=== PATIENT | male | born 1930 | race Caucasian/White ===

== ENCOUNTER → 2017-12-28 | Outpatient (CLI) | payer MEDICARE ==
[~2017-12-28] VITALS: Ht 177.8 cm; Wt 90.7 kg
[~2017-12-28] MED LIST: ADDERALL 20 MG20 M1 PO; ADDERALL 5 MG TA5 M1 PO; ADULT LOW DOSE81 MG PO; ANALGESIC325 MG PO; ANDROGEL; ANTIVERT25 MG PO; APAP500 PO; APAP650 PO; ASPIRIN325 PO; ATORVASTATIN CA10 MG PO; AZITHROMYCIN 2250 MG PO; COLACE100 MG PO; COZAAR 25 MG TA25 MG PO; CRESTOR10 MG PO; DEPO-TESTO100 MG/1 M; DEXILANT60 MG PO; DOXYCYCLINE 10100 MG PO; EXTRA STRENGTH500 MG PO; FINASTERIDE; FISH OIL 1,001000 M2 PO; FISHOIL; FLOMAX PO; FLOMAX0.4 MG PO; IMDUR 30 MG TAB30 M1 PO; IMODIUM ADVANC1 EAC1 PO; INDERAL LA80 MG PO; INDERAL80 MG PO; KAPIDEX30 MG PO; KLOR-CON; LANSOPRAZOLE30 M1 PO; LEVAQUIN 500 M500 M2 PO; LIPITOR; LIPITOR20 MG PO; LISINOPRIL2.5 MG PO; LISINOPRIL5 MG PO; LOPRESSOR50 PO; MAGNESIUM OXID400 MG PO; METADATE ER20 MG PO; METFORMIN HCL500 MG PO; METHYLPHENIDATE; MIRALAX17 GM PO; MULTI-VITAMIN1 EAC2 PO; MULTIVITAMINS1 EAC7 PO; MYSOLINE50 MG PO; NABUMETONE 500500 M1 PO; NAPROXEN 500MG500 M1 PO; NEURONTIN 300300 M1 PO; NITROGLYCERIN0.4 MG SL; NOVOLIN 70100 UNIT/1 SQ; NOVOLIN R100 UNIT/1 SQ; NOVOLOG100 UNIT/1 SQ; OMEPRAZOLE 20 M20 M1 PO; PLAVIX 75 MG TA75 M1 PO; PLAVIX 75 MG TA75 MG PO; POTASSIUM-9999 MG PO; PREDNISONE 10 M10 MG PO; PREVACID30 MG PO; PROSCAR; PROSCAR 5MG TABL5 M1 PO; PROSCAR 5MG TABL5 MG PO; RELAFEN500 MG PO; RITALIN20 MG PO; SAW PALMETTO C1 EACH PO; SAW PALMETTO500 MG PO; SAW PALMETTO80 MG PO; TIZANIDINE HCL 22 MG PO; TOPROL XL50 MG PO; TRAMADOL; TRAMADOL 50 MG50 MG PO; TRAMADOL PO; TRANSDERM-SCO1 PATC1 TD; TYLENOL OR; ULTRAM ER100 MG; VENLAFAXIN37.5 MG/1 PO; VENLAFAXINE H37.5 M2 PO; VITAMIN B COMP1 EACH PO; VITAMIN B-12100 MCG PO; VITAMIN C100 M1 PO; VITAMIN D1000 UNI1 PO; VITAMINC500 PO; VOLTAREN GEL 1100 G1 TOP; VOLTAREN GEL 1100 G2 TOP; VOLTAREN GEL 1100 GM; VOLTAREN100 GM TP; ZEGERID 40 MG1 EACH PO; ZOFRAN ODT4 MG PO; ZOFRAN4 MG PO; naproxen PO
[2017-12-28 14:04] LABS: ABSOLUTE EOSINOPHILS 0.1 thou/uL (0.0-0.7); ABSOLUTE LYMPHOCYTES 1.5 thou/uL (0.8-5.3); ABSOLUTE MONOCYTES 0.5 thou/uL (0.0-1.2); BASOPHILS 0.5 %; EOSINOPHILS 1.9 %; HEMATOCRIT 41.4 % (42.0-52.0); HEMOGLOBIN 14.2 gm/dL (14.0-18.0); MCH 31.3 pg (26.0-34.0); MCHC 34.2 g/dL (28.0-37.0); MCV 91.3 fL (80.0-100.0); MONOCYTES 8.2 %; MPV 8.5 fl. (7.2-11.1); NUCLEATED RBCS 0 /100WBC; PLATELET COUNT* 253 thou/uL (150-400); POLYS 65.4 %; RBC 4.53 mil/uL (4.50-6.00); RDW-CV 12.6 % (10.5-14.5); WBC 6.1 thou/uL (4.0-11.0)
[2017-12-28 14:13] VITALS: BP 139/65
[2017-12-28 14:15] LABS: APTT 25.7 Seconds (25.0-31.3); INR 1.1; PROTIME 10.7 Seconds (9.20-11.50)
[2017-12-28 14:23] LABS: CALCIUM 9.5 mg/dL (8.5-10.1); POTASSIUM 4.1 mmol/L (3.5-5.1)
[2017-12-28 16:25] VITALS: BP 136/66
[2017-12-28 16:35] VITALS: BP 141/79
[2017-12-28 16:49] VITALS: BP 136/83
[2017-12-28 17:07] VITALS: BP 145/76
[2017-12-28 17:27] VITALS: BP 123/62
--- NOTE | 2018-01-05 14:18 | OP ---
[address] [address] OPERATIVE REPORT Name: CONNER CAMACHO Room: [facility]#: [id number] Admission: 12/28/17 Attend Phys: Smith Zamora DO Discharge: Date of : 30 Report #: [id number] THIS REPORT FOR: //name// CC: Smith Amaya Vic Ng DATE OF SERVICE: 12/28/2017 PREOPERATIVE DIAGNOSES: Peripheral vascular disease with rest pain and severe claudication of left lower extremity. POSTOPERATIVE DIAGNOSES: Peripheral vascular disease with rest pain and severe claudication of left lower extremity. SURGEON: Mayank Gates DO PHYSICIST ASTROPHYSICS: None. PROCEDURE: 1. Ultrasound-guided access, right common femoral artery. 2. Aortogram. 3. Left lower extremity angiogram, catheter position, third order. 4. Atherectomy, angioplasty and stent of the left superficial femoral artery using Bard Crosser device, Bard 6 mm x 150 Ultraverse and Bard 6 mm x 170 LifeStent. 5. Limited right lower extremity angiogram. 6. Angio-Seal closure, right common femoral artery. ESTIMATED BLOOD LOSS: Minimal. SPECIMEN: None. COMPLICATIONS: None. CONDITION: Stable. DISPOSITION: Home. INDICATIONS FOR THE PROCEDURE AND CONSENT: The patient is an 87-year-old male who developed a severe pain of the left lower extremity. The patient was identified to have a severely diminished ADRIAN and concerned for SFA occlusion. Recommendation for left lower extremity angiogram with possible intervention was made. Risks and benefits were discussed; infection, bleeding, damage to the vessel, need for additional procedures including bypass, re-intervention as well as medical risks of anesthetic including stroke, heart attack, . The [address] [address] OPERATIVE REPORT Name: CONNER CAMACHO Room: [facility]#: [id number] Admission: 12/28/17 Attend Phys: Smith Zamora DO Discharge: Date of : 30 Report #: [id number] patient wished to proceed, was consented and scheduled. PROCEDURE IN DETAIL: After timeout was performed, the patient was placed in supine position with sterile prep and drape of the bilateral groins, bilateral thighs. Ultrasound was utilized to identify the right common femoral artery and Seldinger technique used to place a 6-Finnish sheath. Glidewire Advantage and UF catheter advanced in the infrarenal aorta and aortogram performed. Aortogram demonstrated the aorta and bilateral renal arteries to be widely patent. The proximal common and internal iliac arteries appeared widely patent. External iliac arteries were somewhat tortuous, but were patent to the inguinal ligament. Glidewire Advantage and UF catheter advanced in the left external iliac artery under fluoroscopic guidance. Please see saved images. A left lower extremity angiogram was then performed, which demonstrated left common femoral artery and profunda vessel to be widely patent without flow limitation or stenosis. Left superficial femoral artery was fairly heavily diseased throughout, but only occluded in the mid to distal SFA with reconstitution near Kevin canal through collaterals. The popliteal artery appeared patent without significant flow limitation or stenosis. Distal directed imaging demonstrated the peroneal vessel be the main flow to the foot and ankle. The anterior tibial artery was patent, but heavily stenosed and diseased proximally and then occluded and reconstituted after a short distance, but appeared very small diminutive. The posterior tibial artery was also significantly diseased and occluded. At this point, the patient was systemically heparinized with 6000 units of heparin with intention to treat. The Glidewire Advantage was negotiated into the proximal superficial femoral artery and an up and over 6-Finnish sheath placed. Seeker catheter was then used to guide the Glidewire Advantage and the Seeker catheter into the proximal top cap of the SFA occlusion and exchanged for a 0.014 Glidewire Advantage. The Usher catheter was advanced into position and the Crosser device prepared on the back table and obtained. The Crosser device was then activated and passed through the SFA occlusion quite easily. The Usher catheter followed easily as well. An outflow angiogram was performed to the Usher catheter, which demonstrated the catheter to be through the occlusion and in the true luminal position. I then replaced the 0.014 wire, exchanged that for a Seeker catheter and 0.035 Glidewire Advantage and performed additional directed imaging of the tibial vessels, which demonstrated the same findings as noted above. The 6 mm x 150 Ultraverse balloon was then selected, advanced into position of the occlusion and the occlusion angioplastied. This was a fairly long occlusion with heavily calcified vessels and was best treated with a stent. A 6 x 170 LifeStent was selected and advanced into position under fluoroscopic guidance and deployed. This was postdilated with the 6 mm x 150 angioplasty balloon using 2 inflations. Completion angiography demonstrated good radiographic result of flow through the SFA. [address] [address] OPERATIVE REPORT Name: CONNER CAMACHO Room: [facility] KEN Longoria#: [id number] Admission: 12/28/17 Attend Phys: Smith Zamora DO Discharge: Date of : 30 Report #: [id number] I then retracted the sheath and wire, the right external iliac artery and angiogram performed of the right lower extremity which demonstrated the common femoral, profunda and SFA to be widely patent without flow limitation, although there was some calcific disease throughout. I was unable to visualize the tibial vessels distally very well, but the very proximal tibial vessels appeared to be patent x 3. Being satisfied of results and no additional intervention planed, the 6-Finnish sheath was removed and an Angio-Seal closure device used for hemostasis. Pressure was distally held for hemostasis. The patient tolerated the procedure well. Lap, needle, instrument counts correct. <ELECTRONICALLY SIGNED> By: Mayank Gates DO 01/05/18 1418 1727 [id number] Gates DO /nt
== END | disposition home or self-care (01) ==
LOC: M.INT 12-27 12:30
PROVIDERS: Surgery
DX: I70.222 Atherosclerosis of native arteries of extremities with rest pain, left leg (principal); Z95.1 Presence of aortocoronary bypass graft; Z98.890 Other specified postprocedural states; Z86.73 Personal history of transient ischemic attack (TIA), and cerebral infarction without residual deficits; Z79.899 Other long term (current) drug therapy; Z79.01 Long term (current) use of anticoagulants

== ENCOUNTER → 2018-02-20 | Outpatient (CLI) | payer MEDICARE ==
--- NOTE | 2018-02-25 08:35 | PAINCON ---
[address] [address] PAIN MANAGEMENT CONSULTATION Name: CONNER CAMACHO Room: [facility]#: [id number] Admission: 02/20/18 Attend Phys: Paulette Hernandez Discharge: Date of : 30 Report #: [id number] THIS REPORT FOR: //name// CC: Vic Christensen DATE OF SERVICE: 02/20/2018 PAIN CLINIC NOTE SUBJECTIVE: The patient is an 87-year-old gentleman prior seen in the pain clinic back in 2014 for myofascial pain and cervical radiculopathy, somewhat lost to follow up. He returns to pain clinic today noting he has ongoing pain in the neck and shoulder, primarily right side. He has multiple trigger points noted. He was recently in the hospital for angioplasty of the right femoral artery. He is currently on blood thinner. In the interval since I last saw him, he had a CVA in 04/2017. Ultimately, he had some right-sided weakness, was admitted to the Hospital for 3 days and then [facility] for 2 weeks, symptoms have generally resolved, though he states his right leg still "comes and goes." He has not fallen. He does use a cane on his left hand. PHYSICAL EXAMINATION: Otherwise shows an 87-year-old gentleman, 5 feet 7 inches, 153 pounds, BMI is 23.8 kg/m2, blood pressure 140/73, pulse 69, and respirations 16. Cervical range of motion is limited. Discrete trigger points in the right trapezius, suprascapular and infrascapular musculature. Has subjective vertigo with cervical range of motion. Upper extremity strength is preserved. Has some "popping" in his neck, some tenderness over the cervical facets. ASSESSMENT: Symptomatic cervical spondylosis, myofascial pain, recent atherosclerotic peripheral vascular disease, and history of cerebrovascular accident now some 10 months ago. RECOMMENDATION: Trigger point x 3 today. Ice to the area and stretch. Followup in 2 weeks for reevaluation. May consider cervical facet joint injections under fluoroscopy, though he needs to be off Plavix for 7 days and given recent femoral angioplasty and stent, this will probably need to wait for about 4 months. ASSESSMENT: Myofascial pain. PROCEDURE: Trigger point x 3. DESCRIPTION OF PROCEDURE: After written informed consent was obtained, [place] [address] PAIN MANAGEMENT CONSULTATION Name: DOUGCONNER Room: [facility]#: [id number] Admission: 02/20/18 Attend Phys: Paulette Hernandez Discharge: Date of : 30 Report #: [id number] patient was placed in seated position. Trigger points in the right trapezius, suprascapular and infrascapular muscles were identified, cleansed with alcohol. Using 25-gauge needle, 40 mg of triamcinolone plus 8 mL of 0.5% preservative-free bupivacaine injected into and around the muscle. Mclean were removed. The area was cleansed and Band-Aids applied. The patient monitored for an appropriate period of time, discharged in good and stable condition. <ELECTRONICALLY SIGNED> By: Milton Christensen DO 02/25/18 0835 1454 0027Milton Christensen DO /nt
== END | disposition home or self-care (01) ==
LOC: M.PC 03:03
DX: M79.1 Myalgia (principal); M47.812 Spondylosis without myelopathy or radiculopathy, cervical region; E11.9 Type 2 diabetes mellitus without complications; I70.209 Unspecified atherosclerosis of native arteries of extremities, unspecified extremity; Z86.73 Personal history of transient ischemic attack (TIA), and cerebral infarction without residual deficits; Z98.62 Peripheral vascular angioplasty status; Z79.01 Long term (current) use of anticoagulants; Z87.01 Personal history of pneumonia (recurrent); Z79.899 Other long term (current) drug therapy; Z88.8 Allergy status to other drugs, medicaments and biological substances

== ENCOUNTER → 2018-03-20 | Outpatient (CLI) | payer MEDICARE ==
--- NOTE | 2018-03-21 07:13 | PAINCON ---
[address] [address] PAIN MANAGEMENT CONSULTATION Name: CONNER CAMACHO [id number] Admission: 03/20/18 Attend Phys: Paulette Hernandez Discharge: Date of : 30 Report #: [id number] THIS REPORT FOR: //name// CC: Vic Christensen DATE OF SERVICE: 03/20/2018 HISTORY OF PRESENT ILLNESS: The patient is an 87-year-old gentleman, prior seen for symptomatic cervical radiculopathy and myofascial pain. I had been given trigger point injections. Last visit on 02/20/2018. Really, this unfortunately afforded only nominal relief. He has been on Plavix for a recent femoral angioplasty and stent, have to wait about another 4 months before he get off the Plavix and consider cervical epidural injection. He returns to pain clinic today noting that his other concern is some swelling in the right lower extremity. Does have development of some "spider type" varicosities. The distal ankle with a little bit of edema. On further inspection, it appears he has been wearing neoprene sleeve in the right thigh. He states that this helps with leg pain. Unfortunately, I think it is acting somewhat like a tourniquet, causing exacerbation of venous congestion in the right lower extremity. He does wear an abdominal binder, which he states helps with axial back pain. We talked about the fact that abdominal binder may indeed help with back pain, but tends to promote weakening of the core stabilization muscles. I suggest if he is going to wear an abdominal binder that he wear it only when he is being physically active, walking or carrying heavy objects. During the lion's share of the day, he should have the abdominal binder either off or significantly loosened. From a functional standpoint, I am at a loss to determine what a compressive garment on the thigh and hamstring does for strengthening functional status. Again, this is an anterior, posterior compression and the muscles in this area tend to be located perpendicular to this main axis. I understand that a compressive garments around joints may help prevent some collection of fluid with edema causing significant pain within the joint via capsular swelling. Again, the latter does make some physiologic sense, the former (simply a sleeve over long axis bone) does not seem to make a great deal of physiologic sense and does seem to be causing a negative impact with the lower extremity modest swelling and development of a capillary dilatation and spider vein varicosities. The patient notes his blood sugars have been reasonably well controlled, although tells me his fasting blood sugar this morning was 155-160. His hemoglobin A1c was 7.0. He uses metformin for glucose control and states he has been developing some diabetic peripheral neuropathy with decreased sensation in his right foot. On further examination, however, it appears that he does have preserved tactile 2-point discrimination in the right lower extremity. I am somewhat stymied to find a specific peripheral neuropathy symptoms[place] [address] PAIN MANAGEMENT CONSULTATION Name: CONNER CAMACHO Room: [facility]#: [id number] Admission: 03/20/18 Attend Phys: Paulette Hernandez Discharge: Date of : 30 Report #: [id number] electric lancinating pain. Notes no loss of proprioception. The patient does use tramadol p.r.n. Dr. Ng, I believe, has taken overwriting for this prescription as appropriate. He uses a cane in his left hand to assist with ambulation. Presently, I see no specific abnormalities amenable to interventional therapy. He is on a modest medication including Voltaren gel topically and tramadol p.r.n. for pain. ASSESSMENT: Cervical radiculopathy by history, myofascial pain, multiple somatic pain complaints. RECOMMENDATIONS: 1. Discontinue use of a compressive neoprene garment on the right thigh. 2. Use abdominal binder with some restraint, encourage exercises to increase core stability, strength and balance. 3. Follow up with Dr. Ng for tramadol and Voltaren gel. We will be happy to see the patient in the [facility] for consideration for interventional therapy if indicated. The patient understands that he will have to be off of Plavix for 7 days prior to any neuraxial procedures (cervical or lumbar epidural injection). I did tell the patient I am leaving the practice; however, he can certainly follow up with Dr. Yo Mir for any interventional procedures if indicated. Thank you for allowing me to participate in the patient's care. I will keep abreast of his progress. <ELECTRONICALLY SIGNED> By: Milton Christensen DO 03/21/18 0713 1402 0340Milton Christensen DO /nt
== END ==
LOC: M.PC 04:07
DX: M54.12 Radiculopathy, cervical region (principal); M79.1 Myalgia; F45.42 Pain disorder with related psychological factors

== ENCOUNTER → 2018-03-21 | Outpatient (CLI) | payer MEDICARE | LOC: M.RAD 15:07 | DX: M19.022 Primary osteoarthritis, left elbow (principal); M67.824 Other specified disorders of tendon, left elbow ==

== ENCOUNTER 2018-10-13 17:17 | Emergency (ER) | payer MEDICARE ==
[~2018-10-13] VITALS: Ht 167.6 cm; Wt 69.0 kg
[2018-10-13] MEDS ORDERED: TRAMADOL 50 MG50 MG PO (17:34)
[2018-10-13] MEDS ORDERED: ZANTAC 150MG T150 MG PO (17:35)
[2018-10-13] MEDS ORDERED: FLOMAX0.4 MG PO (17:35)
[2018-10-13] MEDS ORDERED: TYLENOL EXTRA500 MG PO (17:35)
[2018-10-13 17:58] LABS: ABSOLUTE EOSINOPHILS 0.2 thou/uL (0.0-0.7); ABSOLUTE LYMPHOCYTES 1.5 thou/uL (0.8-5.3); ABSOLUTE MONOCYTES 0.5 thou/uL (0.0-1.2); ABSOLUTE NEUTROPHILS 2.7 thou/uL (1.6-8.1); BASOPHILS 0.8 %; EOSINOPHILS 3.2 %; HEMATOCRIT 40.2 % (42.0-52.0); HEMOGLOBIN 13.7 gm/dL (14.0-18.0); LYMPHOCYTES 29.7 %; MCH 31.1 pg (26.0-34.0); MCHC 34.1 g/dL (28.0-37.0); MCV 91.4 fL (80.0-100.0); MONOCYTES 10.6 %; MPV 8.3 fl. (7.2-11.1); NUCLEATED RBCS 0 /100WBC; PLATELET COUNT* 269 thou/uL (150-400); POLYS 55.7 %; RDW-CV 12.3 % (10.5-14.5); WBC 4.9 thou/uL (4.0-11.0)
[2018-10-13 18:06] LABS: ANION GAP 10 mmol/L (7-16); BUN 14 mg/dL (7-18); CALCIUM 9.7 mg/dL (8.5-10.1); CHLORIDE 102 mmol/L (98-107); CO2 29 mmol/L (21-32); CREATININE 1.1 mg/dL (0.6-1.3); GLUCOSE 103 mg/dL (70-99); POTASSIUM 3.9 mmol/L (3.5-5.1); SODIUM 141 mmol/L (136-145)
[2018-10-13 18:20] LABS: ALBUMIN 3.9 g/dL (3.4-5.0); ALKALINE PHOSPHATASE 45 U/L (46-116); LIPASE 101 U/L (73-393); SGOT 24 U/L (15-37); SGPT 40 U/L (30-65); TOTAL BILIRUBIN 0.3 mg/dL (<0.1-1.0); TOTAL PROTEIN 7.2 g/dL (6.4-8.2); TROPONIN-I LEVEL <0.06 ng/mL (<0.06)
[2018-10-13 19:53] LABS: URINE BILIRUBIN NEGATIVE (Negative); URINE BLOOD NEGATIVE (Negative); URINE CLARITY CLEAR; URINE COLOR YELLOW; URINE GLUCOSE-RANDOM NEGATIVE (Negative); URINE KETONES NEGATIVE (Negative); URINE LEUKOCYTES-REFLEX NEGATIVE (Negative); URINE NITRITE-REFLEX NEGATIVE (Negative); URINE PROTEIN NEGATIVE (Negative); URINE UROBILINOGEN 0.2 E.U./dl (0.2-1.0)
[2018-10-13] MEDS ORDERED: NYSTATIN 100,0015 G1 TP (20:15)
[2018-10-13] MEDS ORDERED: PEPCID20 MG PO (20:26)
[2018-10-13 20:45] VITALS: BP 152/66
--- NOTE | 2018-10-14 13:42 | EKG ---
[place] [address] ELECTROCARDIOGRAM REPORT Name: CONNER CAMACHO Room: [facility]#: [id number] Admission: 10/13/18 Attend Phys: Discharge: 10/13/18 Date of : 30 Report #: [id number] THIS REPORT FOR: //name// [facility] ED Test Date: 2018-10-13 Test Time: 17:41:32 Pat Name: CONNER CAMACHO Department: Room: Gender: M Medicaid Billing Clerk: BREE : 1930 Requested By: Igor Foley Order Number: [id number] MD: Umer Colby Measurements Intervals [place] Rate: 70 P: -20 ND: 152 QRS: 5 QRSD: 96 T: -13 QT: 396 QTc: 428 Interpretive Statements Sinus rhythm Borderline T abnormalities, inferior leads Compared to ECG 04/21/2017 11:49:09 T-wave abnormality now present Myocardial infarct finding no longer present Electronically Signed On 10-14-2018 13:41:59 HELP DESK INTERN by Umer Colby [email or web address] <ELECTRONICALLY SIGNED> By: Umer Colby MD, [facility] 10/14/18 1341 174 174 Umer Colby MD, [facility] /EPI
== END 2018-10-13 20:50 | disposition home or self-care (01) ==
LOC: M.ERS 17:17
PROVIDERS: Family Medicine
DX: R10.13 Epigastric pain (principal); K62.89 Other specified diseases of anus and rectum; Z88.8 Allergy status to other drugs, medicaments and biological substances; Z95.1 Presence of aortocoronary bypass graft; Z86.73 Personal history of transient ischemic attack (TIA), and cerebral infarction without residual deficits

== ENCOUNTER → 2018-11-21 | Outpatient (CLI) | payer MEDICARE, OTHER ==
[~2018-11-21] MED LIST changes: +NYSTATIN 100,0015 G1 TP; +PEPCID20 MG PO; +TYLENOL EXTRA500 MG PO; +ZANTAC 150MG T150 MG PO
== END ==
LOC: M.LAB 15:49
DX: R23.2 Flushing (principal)

== ENCOUNTER → 2019-05-19 | Outpatient (CLI) | payer MEDICARE, OTHER ==
--- NOTE | 2019-05-19 17:07 | 2DMMODE ---
[place] [address] 2 D/M-MODE ECHOCARDIOGRAM Name: CONNER CAMACHO Room: [facility]#: [id number] Admission: 05/19/19 Attend Phys: Roshan Schaefer Discharge: Date of : 30 Date of Service: 05/19/19 1707 Report #: [id number] THIS REPORT FOR: //name// APPROVED REPORT Study performed: 05/19/2019 13:27:46 EXAM: Comprehensive 2D, Doppler, and color-flow Echocardiogram Patient Location: Out-Patient BSA: 1.78 HR: 77 bpm BP: 142/78 mmHg Other Information Study Quality: Fair Indications CAD 2D Dimensions IVSd: 12.35 (7-11mm) LVOT Diam: 20.30 (18-24mm) LVDd: 38.65 mm PWd: 10.89 (7-11mm) Ascending Ao: 28.89 (22-36mm) LVDs: 25.58 (25-40mm) Aortic Root: 31.73 mm Volumes Left Atrial Volume (Systole) LA ESV Index: 18.10 mL/m2 Aortic Valve AoV Peak Yong.: 0.78 m/s AO Peak Gr.: 2.45 mmHg LVOT Max P.55 mmHg AO Mean Gr.: 1.39 mmHg LVOT Mean P.13 mmHg LVOT Max V: 0.80 m/s AO V2 VTI: 15.13 cm LVOT Mean V: 0.49 m/s JOSAFAT (VTI): 3.29 cm2 LVOT V1 VTI: 15.40 cm Mitral Valve E/A Ratio: 0.43 MV Decel. Time: 296.29 ms MV E Max Yong.: 0.39 m/s MV PHT: 85.92 ms MVA (PHT): 2.56 [place] [address] 2 D/M-MODE ECHOCARDIOGRAM Name: CONNER CAMACHO Room: [facility]#: [id number] Admission: 05/19/19 Attend Phys: Roshan Schaefer Discharge: Date of : 30 Date of Service: 05/19/19 1707 Report #: [id number] TDI E/Lateral E': 3.25 E/Medial E': 4.88 Medial E' Yong.: 0.08 m/s Lateral E' Yong.: 0.12 m/s Pulmonary Valve PV Peak Yong.: 0.66 m/s PV Peak Gr.: 1.74 mmHg Left Ventricle The left ventricle is normal size. There is normal LV segmental wall motion. There is normal left ventricular wall thickness. Left ventricular systolic function is normal. The left ventricular ejection fraction is within the normal range. LVEF is 55-60%. Grade I - abnormal relaxation pattern. Right Ventricle The right ventricle is normal size. The right ventricular systolic function is normal. Atria The left atrium size is normal. The right atrium size is normal. Aortic Valve The aortic valve is normal in structure. No aortic regurgitation is present. There is no aortic valvular stenosis. Mitral Valve Mild mitral annular calcification. There is no mitral valve regurgitation noted. No evidence of mitral valve stenosis. Tricuspid Valve The tricuspid valve is normal in structure. There is no tricuspid valve regurgitation noted. Pulmonic Valve The pulmonary valve is normal in structure. There is no pulmonic valvular regurgitation. Great Vessels The aortic root is normal in size. IVC is normal in size and collapses >50% with inspiration. Pericardium There is [place] [address] 2 D/M-MODE ECHOCARDIOGRAM Name: CONNER CAMACHO Room: [facility]#: [id number] Admission: 05/19/19 Attend Phys: Roshan Schaefer Discharge: Date of : 30 Date of Service: 05/19/19 1707 Report #: [id number] <Conclusion> The left ventricle is normal size. Left ventricular systolic function is normal. The left ventricular ejection fraction is within the normal range. LVEF is 55-60%. The right ventricle is normal size. The left atrium size is normal. The aortic valve is normal in structure. Mild mitral annular calcification. There is no mitral valve regurgitation noted. No evidence of mitral valve stenosis. The tricuspid valve is normal in structure. IVC is normal in size and collapses >50% with inspiration. There is no pericardial effusion. There is normal LV segmental wall motion. Grade I - abnormal relaxation pattern. <ELECTRONICALLY SIGNED> By: Titi Christiansen MD, [facility] 05/19/19 170 06 06 Titi Christiansen MD, FACC /INF
--- NOTE | 2019-05-20 09:56 | CARDNUC ---
[place] [address] CARDIAC NUCLEAR IMAGING REPORT Name: CONNER CAMACHO Room: [facility]#: [id number] Admission: 05/19/19 Attend Phys: Rsohan Schaefer Discharge: Date of : 30 Date of Service: 05/20/19 0955 Report #: [id number] THIS REPORT FOR: //name// APPROVED REPORT Study performed: 05/19/2019 15:45:30 Exam: Nuclear Stress Test Indication: Fatigue Patient Location: Out-Patient Stress Tech: Nette Gaston Stress Nurse: Claire Izaguirre R.N. Ht: 5 ft 6 in Wt: 154 lbs BSA: 1.79 m2 BMI: 24.85 Medical History Medical History: Angina, CAD s/p CABG, Diabetes, Fatigue, HTN, Atrial Fibrillation, Stroke/TIA, Weakness, PAT Medications: metoprolol, plavix, jardiance, Insulin, NTG. Allergies: Adhesives, Amoxicillin, carisoprodol, latex, omesartan, scopolamine, valium. Cardiac Risk Factors: Age, Diabetes (insulin), FHX of CAD, HTN, Past Smoker. Previous Cardiac Procedures: CABG Pretest Chest Pain Characteristics: No chest pain Exercise History: Sedentary Physical Disabilities: Weak, Fatigued, CVA. Meds Held (24 hrs): Metoprolol, NTG. Stress Test Details Stress Test: Pharmacologic stress testing performed using 0.4 mg of regadenoson per 5 mL given IV over 10 seconds. Reason for pharmacologic stress test: CVA, weak, fatigue, unstable gait.. HR Resting HR: 72 bpm Max Heart Rate (APMHR): 132 bpm Max HR Achieved: 110 bpm Target HR (85% APMHR): 112 bpm % of APMHR: 83 Recovery HR: 89 bpm BP Resting BP: 136/64 mmHg Max BP: 175/70 [place] [address] CARDIAC NUCLEAR IMAGING REPORT Name: CONNER CAMACHO Room: [facility]#: [id number] Admission: 05/19/19 Attend Phys: Roshan Schaefer Discharge: Date of : 30 Date of Service: 05/20/19 0955 Report #: [id number] ECG Resting ECG: Sinus Rhythm Stress ECG: Sinus Tachycardia ST Change: Downsloping ST depression Maximum ST Deviation: 1 mm Arrhythmia: None Recovery ECG: Sinus Rhythm Recovery ST Change: Downsloping ST depression Recovery ST Deviation: 1 mm Recovery Arrhythmia: None Clinical Reason for Termination: Completed protocol Stress Symptoms: SOA, LIGHTHEADED, DIZZY. Exercise duration: 00 min 00 sec Exercise capacity: 1.00 METs The patient had no significant symptoms with Lexiscan infusion. Nurse Comments 88 YEAR OLD MALE PRESENTED WITH INCREASED FATIGUE. PATIENT TOLERATED SITTING LEXISCAN WELL. RECOVERY UNREMARKABLE WITH PO CAFFEINE, EFFECTIVE. PATIENT WAS ESCORTED BY STAFF VIA WHEELCHAIR TO NUCLEAR MEDICINE FOR IMAGES. PATIENT STABLE WITH NO COMPLAINTS AT THAT TIME. Stress ECG Conclusion The baseline 12-lead EKG shows sinus rhythm with mild T wave inversion in the anterior leads. EKGs during and post Lexiscan infusion show sinus rhythm and sinus tachycardia with [address] segment depression noted in the inferior leads. There is 1-1.[address] segment depression with T-wave inversion in the anterior leads. There were no stress-induced arrhythmias. NM EXAM: Myocardial Perfusion REST/STRESS Imaging Protocol: Rest Tc-99m/Stress Tc-99m 1 day Resting Data Rest SPECT myocardial perfusion imaging was performed in supine position 30 minutes following the intravenous injection of 10.1 mCi of Tc-99m Sestamibi. Time of rest injection: 14:20 The images were gated to evaluate regional wall motion and calculate left ventricular ejection fraction. Administration Route: IV Administration Site: [place] [address] CARDIAC NUCLEAR IMAGING REPORT Name: CONNER CAMACHO Room: [facility] [place]#: [id number] Admission: 05/19/19 Attend Phys: Roshan Schaefer Discharge: Date of : 30 Date of Service: 05/20/19 0955 Report #: [id number] Pharmacologic Stress Pharmacologic stress test was performed by injecting Regadenoson 0.4 mg IV push followed by the intravenous injection of 33.2 mCi of Tc-99m Sestamibi. Time of stress injection: 1600 Administration Route: IV Administration Site: Right Arm Heart Rate at time of stress injection: 110 bpm. Gated Stress SPECT was performed 40 minutes after stress injection. The images were gated to evaluate regional wall motion and calculate left ventricular ejection fraction. Study Data At rest, the left ventricular ejection fraction was 88%.. Post stress, the left ventricular ejection was 73%.. TID = 1.49. Perfusion There appears to be a moderate sized mild to moderate intensity reversible defect in the lateral wall. There is some diaphragmatic attenuation on the resting images. No other significant fixed or reversible defects were identified. Wall Motion Septal wall motion abnormality consistent with prior bypass procedure noted. Global LV systolic function is preserved. Nuclear Conclusion ECG Findings: positive for ischemia Clinical Findings: negative for ischemia Nuclear Findings: positive for ischemia Exercise Capacity: not assessed Left Ventricular Function: preserved Risk Study: high Myocardial perfusion images suggest stress-induced ischemia of the lateral wall. LV systolic function is preserved. This is a high risk study. <Conclusion> The baseline 12-lead EKG shows sinus rhythm with mild T wave inversion in the anterior leads. EKGs during and post Lexiscan infusion show sinus rhythm and sinus tachycardia with [address] segment depression noted in the [place] [address] CARDIAC NUCLEAR IMAGING REPORT Name: CONNER CAMACHO Room: [facility] [place]#: [id number] Admission: 05/19/19 Attend Phys: Roshan Schaefer Discharge: Date of : 30 Date of Service: 05/20/19 0955 Report #: [id number] is 1-1.[address] segment depression with T-wave inversion in the anterior leads. There were no stress-induced arrhythmias. <ELECTRONICALLY SIGNED> By: Umer Colby MD, FACC 05/20/19954 4 4 Umer Colby MD, FACC /INF
== END ==
LOC: M.NUC 05-07 11:37 → M.CRD 13:00
DX: I25.10 Atherosclerotic heart disease of native coronary artery without angina pectoris (principal); I48.0 Paroxysmal atrial fibrillation; E11.9 Type 2 diabetes mellitus without complications; I10 Essential (primary) hypertension; I48.91 Unspecified atrial fibrillation; Z91.040 Latex allergy status; Z95.5 Presence of coronary angioplasty implant and graft; Z86.73 Personal history of transient ischemic attack (TIA), and cerebral infarction without residual deficits; Z79.899 Other long term (current) drug therapy; Z88.1 Allergy status to other antibiotic agents; Z88.8 Allergy status to other drugs, medicaments and biological substances

== ENCOUNTER 2020-05-13 10:07 | Emergency (ER) | payer MEDICARE, OTHER ==
[~2020-05-13] VITALS: Ht 167.6 cm; Wt 70.3 kg
[2020-05-13] MEDS ORDERED: BACTRIM DS TAB1 EACH PO (11:13)
[2020-05-13] MEDS ORDERED: NORCO 5-325 TA1 EAC2 PO (11:13)
[2020-05-13 11:31] VITALS: BP 145/90
== END 2020-05-13 11:31 | disposition home or self-care (01) ==
LOC: M.ERS 10:07
DX: S60.445A External constriction of left ring finger, initial encounter (principal); L02.512 Cutaneous abscess of left hand; Z88.8 Allergy status to other drugs, medicaments and biological substances; W49.04XA Ring or other jewelry causing external constriction, initial encounter; Y93.89 Activity, other specified; Y92.89 Other specified places as the place of occurrence of the external cause; Y99.8 Other external cause status